=== PATIENT | female | born 1980 | race Caucasian/White ===

== ENCOUNTER 2016-12-17 02:35 | Emergency (ER) | payer OTHER ==
[2016-12-17] MEDS ORDERED: AMOXICILLIN 500 MG CAP As Ordered ONE (04:30)
--- NOTE | 2016-12-17 04:38 | EDDOCDS ---
Nurse's Notes [facility] Name: Alyssa Deal Age: 36 yrs Sex: Female : 1980 Arrival Date: 12/17/2016 Time: 02:35 Bed 9 Private MD: Diagnosis: Acute serous otitis media, right ear Presentation: 12/17 02:47 Presenting complaint: Patient states: URI symptoms since Friday developed right ear cz pain earlier tonight. Adult Sepsis Screening: The patient does not have new or worsening altered mentation. Patient's respiratory rate is less than 22. Systolic blood pressure is greater than 100. Patient has a qSOFA score of 0- Negative Sepsis Screen. Suicide/Homicide risk assessment- the patient denies having any suicidal and/or homicidal ideations and does not present with any other emotional, behavioral or mental health complaints. Status: The patient is a dependent. Transition of care: patient was not received from another setting of care. 02:47 Acuity: LISANDRA Level 5 cz 02:47 Method Of Arrival: Walkin/Carried/Asstd cz Triage Assessment: 02:49 General: Appears in no apparent distress. Pain: Location: right ear Pain currently is 8 cz out of 10 on a pain scale. Pt Declines HIV testing. 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 control - PMHx: none; - PSHx: none; - Social history: Smoking status: Patient states was never smoker of tobacco. No barriers to communication noted, The patient speaks fluent Bengali, Speaks appropriately for age. - Family history: Not pertinent. - : The pt / caregiver states he / she is not on anticoagulants. Home medication list is obtained from the patient. - Exposure Risk Screening:: None identified. Screenin:35 Screening information is obtained from the patient. Fall risk: No risks identified. ko2 Assistance ADL's: requires no assistance with activities of daily living. Abuse/DV Screen: The patient / caregiver reports he/she is: not in a situation that causes fear, pain or injury. Nutritional screening: No deficits noted. Advance Directives: Currently, there is no health care proxy. There is no active DNR order. home support is adequate. Assessment: 03:10 General: Appears uncomfortable, Behavior is appropriate for age, cooperative. Pain: ko2 Location: right ear. Neurological: Level of Consciousness is awake, alert. EENT: Reports pain in right ear. Respiratory: Airway is patent Respiratory effort is even, unlabored. Derm: Skin is normal. 04:36 General: Appears uncomfortable, Behavior is appropriate for age, cooperative. Pain: ko2 Location: right ear Pain currently is 7 out of 10 on a pain scale. Neurological: No deficits noted. Respiratory: Airway is patent Respiratory effort is even, unlabored, Reports cough that is. Derm: Skin is normal. Vital Signs: 02:49 BP 124 / 83; Pulse 69; Resp 16; Temp 98.5(O); Pulse Ox 98% on R/A; Weight 69.4 kg; cz Height 5 ft. 9 in. (175.26 cm); 04:30 BP 132 / 85; Pulse 68; Resp 18; Temp 99.5(TE); Pulse Ox 99% on R/A; Pain 8/10; deepthi 02:49 Body Mass Index 22.59 (69.40 kg, 175.26 cm) Vitals: 02:49 Log In Time: December 17, 2016 at 02:35. cz ED Course: 02:36 Patient visited by Dustin Pedersen Reg. pm4 02:36 Patient moved to Waiting pm4 02:47 Patient moved to Triage 1 cz 02:48 Triage Initiated cz 02:52 Patient moved to Pre RCE cz 03:06 Lyric Sin,RN is Primary Nurse. cz 03:06 Patient moved to 9 cz 03:22 Patient visited by Ton Voss PCA. kb5 04:02 Poncho Gusman DO is Attending Physician. mm11 04:02 Patient visited by Poncho Gusman DO. mm11 04:14 Patient visited by Poncho Gusman DO. mm11 04:15 [facility] is Referral Physician. mm11 04:36 The patient / caregiver is instructed regarding the plan of care and ED course. ko2 04:36 No IV's were initiated during this patient's visit. No procedures done that require ko2 assistance. Administered Medications: 04:31 Drug: Amoxicillin 500 mg [amoxicillin 500 mg capsule (1 caps)] Route: PO; ko2 Order Results: There are currently no results for this order. Outcome: 04:15 Discharge ordered by Provider. mm11 04:37 Discharge Assessment: Patient awake, alert and oriented x 3. No cognitive and/or ko2 functional deficits noted. Patient verbalized understanding of disposition instructions. patient administered narcotics - no. The following High Risk Discharge criteria are identified: None. Discharged to home ambulatory, with parent. Condition: stable. Discharge instructions given to patient, Instructed on discharge instructions, follow up and referral plans. medication usage, Demonstrated understanding of instructions, medications, Pt was receptive of discharge instructions/ teaching. Prescriptions given X 1. No special radiology studies were completed. Property sent home with patient. 04:37 Patient left the ED. ko2 Signatures: Rex Acevedo, RN RN cz Ton Voss, COST AND RISK ANALYSIS MANAGER COST AND RISK ANALYSIS MANAGER kb5 Poncho Gusman, DO SLOAN mm11 Alondra Sagastume, COST AND RISK ANALYSIS MANAGER COST AND RISK ANALYSIS MANAGER deepthi Lyric Sin RN RN ko2 Dustin Pedersen, Reg Reg pm4 MTDD
--- NOTE | 2016-12-17 04:38 | EDDOCDS ---
Physician Documentation [facility] Name: Alyssa Deal Age: 36 yrs Sex: Female : 1980 Arrival Date: 12/17/2016 Time: 02:35 Bed 9 Private MD: Disposition: 12/17/16 04:15 Discharged to Home/Self Care. Impression: Acute serous otitis media, right ear. - Condition is Stable. - Discharge Instructions: Otitis Media, Adult, Otitis Media, Adult, [id number]. - Prescriptions for Amoxicillin 500 mg Oral Capsule - take 1 capsule by ORAL route every 8 hours for 10 days; 30 tablet. - Medication Reconciliation, Local Pharmacy Hours form. - [facility]; When: Call to arrange an appointment; Reason: To establish care. - Problem is an ongoing problem. - Symptoms have improved. Historical: - Allergies: No known drug Allergies; - Home Meds: 1. control - PMHx: none; - PSHx: none; - Social history: Smoking status: Patient states was never smoker of tobacco. No barriers to communication noted, The patient speaks fluent Tunisian, Speaks appropriately for age. - Family history: Not pertinent. - : The pt / caregiver states he / she is not on anticoagulants. Home medication list is obtained from the patient. - Exposure Risk Screening:: None identified. 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 9 in. (175.26 cm); 04:30 BP 132 / 85; Pulse 68; Resp 18; Temp 99.5(TE); Pulse Ox 99% on R/A; Pain 8/10; deepthi 02:49 Body Mass Index 22.59 (69.40 kg, 175.26 cm) cz MDM: 04:14 Amoxicillin 500 mg PO once ordered. mm11 Administered Medications: 04:31 Drug: Amoxicillin 500 mg [amoxicillin 500 mg capsule (1 caps)] Route: PO; ko2 Signatures: Rex Acevedo RN RN cz Maynard, Matthew, DO DO mm11 Lyric Sin RN RN ko2 MTDD
--- NOTE | 2016-12-19 05:38 | EDDOCDS ---
Nurse's Notes [facility] Name: Alyssa Deal Age: 36 yrs Sex: Female : 1980 Arrival Date: 12/17/2016 Time: 02:35 Bed 9 Private MD: Diagnosis: Acute serous otitis media, right ear Presentation: 12/17 02:47 Presenting complaint: Patient states: URI symptoms since Friday developed right ear cz pain earlier tonight. Adult Sepsis Screening: The patient does not have new or worsening altered mentation. Patient's respiratory rate is less than 22. Systolic blood pressure is greater than 100. Patient has a qSOFA score of 0- Negative Sepsis Screen. Suicide/Homicide risk assessment- the patient denies having any suicidal and/or homicidal ideations and does not present with any other emotional, behavioral or mental health complaints. Status: The patient is a dependent. Transition of care: patient was not received from another setting of care. 02:47 Acuity: LISANDRA Level 5 cz 02:47 Method Of Arrival: Walkin/Carried/Asstd cz Triage Assessment: 02:49 General: Appears in no apparent distress. Pain: Location: right ear Pain currently is 8 cz out of 10 on a pain scale. Pt Declines HIV testing. AUDITOR/QUALITY: 02:49 LMP 11/14/2016 cz Historical: - Allergies: No known drug Allergies; - Home Meds: 1. control - PMHx: none; - PSHx: none; - Social history: Smoking status: Patient states was never smoker of tobacco. No barriers to communication noted, The patient speaks fluent Telugu, Speaks appropriately for age. - Family history: Not pertinent. - : The pt / caregiver states he / she is not on anticoagulants. Home medication list is obtained from the patient. - Exposure Risk Screening:: None identified. Screenin:35 Screening information is obtained from the patient. Fall risk: No risks identified. ko2 Assistance ADL's: requires no assistance with activities of daily living. Abuse/DV Screen: The patient / caregiver reports he/she is: not in a situation that causes fear, pain or injury. Nutritional screening: No deficits noted. Advance Directives: Currently, there is no health care proxy. There is no active DNR order. home support is adequate. Assessment: 03:10 General: Appears uncomfortable, Behavior is appropriate for age, cooperative. Pain: ko2 Location: right ear. Neurological: Level of Consciousness is awake, alert. EENT: Reports pain in right ear. Respiratory: Airway is patent Respiratory effort is even, unlabored. Derm: Skin is normal. 04:36 General: Appears uncomfortable, Behavior is appropriate for age, cooperative. Pain: ko2 Location: right ear Pain currently is 7 out of 10 on a pain scale. Neurological: No deficits noted. Respiratory: Airway is patent Respiratory effort is even, unlabored, Reports cough that is. Derm: Skin is normal. Vital Signs: 02:49 BP 124 / 83; Pulse 69; Resp 16; Temp 98.5(O); Pulse Ox 98% on R/A; Weight 69.4 kg; cz Height 5 ft. 9 in. (175.26 cm); 04:30 BP 132 / 85; Pulse 68; Resp 18; Temp 99.5(TE); Pulse Ox 99% on R/A; Pain 8/10; deepthi 02:49 Body Mass Index 22.59 (69.40 kg, 175.26 cm) Vitals: 02:49 Log In Time: December 17, 2016 at 02:35. cz ED Course: 02:36 Patient visited by Dustin Pedersen Reg. pm4 02:36 Patient moved to Waiting pm4 02:47 Patient moved to Triage 1 cz 02:48 Triage Initiated cz 02:52 Patient moved to Pre RCE cz 03:06 Lyric Sin,RN is Primary Nurse. cz 03:06 Patient moved to 9 cz 03:22 Patient visited by Ton Voss PCA. kb5 04:02 Poncho Gusman DO is Attending Physician. mm11 04:02 Patient visited by Poncho Gusman DO. mm11 04:14 Patient visited by Poncho Gusman DO. mm11 04:15 [facility] is Referral Physician. mm11 04:36 The patient / caregiver is instructed regarding the plan of care and ED course. ko2 04:36 No IV's were initiated during this patient's visit. No procedures done that require ko2 assistance. 04:44 [facility] Payment Agreement was scanned into [employer] and attached to record. hs2 04:46 Patient name changed from Alyssa\S\L\S\Say\S\ to Alyssa\S\Sheeba\S\Say. EDGA 12:10 T-Sheet-- Draft Copy was scanned into [employer] and attached to record. gb Administered Medications: 04:31 Drug: Amoxicillin 500 mg [amoxicillin 500 mg capsule (1 caps)] Route: PO; ko2 Order Results: There are currently no results for this order. Outcome: 04:15 Discharge ordered by Provider. mm11 04:37 Discharge Assessment: Patient awake, alert and oriented x 3. No cognitive and/or ko2 functional deficits noted. Patient verbalized understanding of disposition instructions. patient administered narcotics - no. The following High Risk Discharge criteria are identified: None. Discharged to home ambulatory, with parent. Condition: stable. Discharge instructions given to patient, Instructed on discharge instructions, follow up and referral plans. medication usage, Demonstrated understanding of instructions, medications, Pt was receptive of discharge instructions/ teaching. Prescriptions given X 1. No special radiology studies were completed. Property sent home with patient. 04:37 Patient left the ED. ko2 Signatures: [facility] ED[facility] Rex Acevedo, RN RN cz Anu Lyn, Reg Reg gb Ton Voss, TIN RECOVERY WORKER TIN RECOVERY WORKER kb5 Poncho Gusman, DO mm11 Alondra Sagastume, TIN RECOVERY WORKER TIN RECOVERY WORKER Lyric Castaneda RN RN ko2 Renetta Mars, Reg Reg hs2 Dustin Pedersen, Reg Reg pm4 Chart Complete MTDD
--- NOTE | 2016-12-19 05:38 | EDDOCDS ---
Physician Documentation [facility] Name: Alyssa Deal Age: 36 yrs Sex: Female : 1980 Arrival Date: 12/17/2016 Time: 02:35 Bed 9 Private MD: Disposition: 12/17/16 04:15 Discharged to Home/Self Care. Impression: Acute serous otitis media, right ear. - Condition is Stable. - Discharge Instructions: Otitis Media, Adult, Otitis Media, Adult, [id number]. - Prescriptions for Amoxicillin 500 mg Oral Capsule - take 1 capsule by ORAL route every 8 hours for 10 days; 30 tablet. - Medication Reconciliation, Local Pharmacy Hours form. - Follow up: [facility]; When: Call to arrange an appointment; Reason: To establish care. - Problem is an ongoing problem. - Symptoms have improved. Historical: - Allergies: No known drug Allergies; - Home Meds: 1. control - PMHx: none; - PSHx: none; - Social history: Smoking status: Patient states was never smoker of tobacco. No barriers to communication noted, The patient speaks fluent Turkmen, Speaks appropriately for age. - Family history: Not pertinent. - : The pt / caregiver states he / she is not on anticoagulants. Home medication list is obtained from the patient. - Exposure Risk Screening:: None identified. MARKETING AND PROMOTIONS MANAGER: 12/17 02:49 LMP 11/14/2016 cz Vital Signs: 02:49 BP 124 / 83; Pulse 69; Resp 16; Temp 98.5(O); Pulse Ox 98% on R/A; Weight 69.4 kg / 153 cz lbs; Height 5 ft. 9 in. (175.26 cm); 04:30 BP 132 / 85; Pulse 68; Resp 18; Temp 99.5(TE); Pulse Ox 99% on R/A; Pain 8/10; deepthi 02:49 Body Mass Index 22.59 (69.40 kg, 175.26 cm) cz MDM: 04:14 Amoxicillin 500 mg PO once ordered. mm11 04:44 [facility] Payment Agreement was scanned into [employer] and attached to record. hs2 04:50 Financial registration complete. hs2 12:10 T-Sheet-- Draft Copy was scanned into [employer] and attached to record. gb Administered Medications: 04:31 Drug: Amoxicillin 500 mg [amoxicillin 500 mg capsule (1 caps)] Route: PO; ko2 Signatures: Rex Acevedo, [place] RN cz Anu Lyn, Reg Reg gb Poncho Gusman DO DO mm11 Lyric Sin RN RN ko2 Renetta Mars, Reg Reg hs2 The chart was reviewed and I authenticate all verbal orders and agree with the evaluation and treatment provided.Attachments: 04:44 [facility] Payment Agreement hs2 12:10 T-Sheet-- Draft Copy gb Chart Complete MTDD
--- NOTE | 2016-12-19 05:38 | EDDOCDS ---
Physician Documentation [facility] Name: Alyssa Deal Age: 36 yrs Sex: Female : 1980 Arrival Date: 12/17/2016 Time: 02:35 Bed 9 Private MD: Disposition: 12/17/16 04:15 Discharged to Home/Self Care. Impression: Acute serous otitis media, right ear. - Condition is Stable. - Discharge Instructions: Otitis Media, Adult, Otitis Media, Adult, [id number]. - Prescriptions for Amoxicillin 500 mg Oral Capsule - take 1 capsule by ORAL route every 8 hours for 10 days; 30 tablet. - Medication Reconciliation, Local Pharmacy Hours form. - Follow up: [facility]; When: Call to arrange an appointment; Reason: To establish care. - Problem is an ongoing problem. - Symptoms have improved. Historical: - Allergies: No known drug Allergies; - Home Meds: 1. control - PMHx: none; - PSHx: none; - Social history: Smoking status: Patient states was never smoker of tobacco. No barriers to communication noted, The patient speaks fluent Sao Tomean, Speaks appropriately for age. - Family history: Not pertinent. - : The pt / caregiver states he / she is not on anticoagulants. Home medication list is obtained from the patient. - Exposure Risk Screening:: None identified. 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 9 in. (175.26 cm); 04:30 BP 132 / 85; Pulse 68; Resp 18; Temp 99.5(TE); Pulse Ox 99% on R/A; Pain 8/10; deepthi 02:49 Body Mass Index 22.59 (69.40 kg, 175.26 cm) cz MDM: 04:14 Amoxicillin 500 mg PO once ordered. mm11 04:44 [facility] Payment Agreement was scanned into [employer] and attached to record. hs2 04:50 Financial registration complete. hs2 12:10 T-Sheet-- Draft Copy was scanned into [employer] and attached to record. gb Administered Medications: 04:31 Drug: Amoxicillin 500 mg [amoxicillin 500 mg capsule (1 caps)] Route: PO; ko2 Signatures: Rex Acevedo, [place] RN cz Anu Lyn, Reg Reg gb Poncho Gusman DO DO mm11 Lyric Sin RN RN ko2 Renetta Mars, Reg Reg hs2 The chart was reviewed and I authenticate all verbal orders and agree with the evaluation and treatment provided.Attachments: 04:44 [facility] Payment Agreement hs2 12:10 T-Sheet-- Draft Copy gb Chart Complete MTDD
== END 2016-12-17 04:37 | disposition home or self-care (01) ==
LOC: M ED 02:35
DX: H65.01 Acute serous otitis media, right ear (principal); Z79.3 Long term (current) use of hormonal contraceptives

== ENCOUNTER → 2019-01-06 | Outpatient (REF) | payer BC ==
[2019-01-09 00:06] LABS: HPV HYBRID CAPTURE II Negative (Negative)
== END ==
LOC: M SFHCWAGY 14:36
PROVIDERS: ATTEND Nurse Practitioner Family
DX: Z12.4 Encounter for screening for malignant neoplasm of cervix (principal)
CPT/HCPCS: 87624; G0123

== ENCOUNTER → 2019-05-27 | Outpatient (REF) | payer BC ==
[2019-05-27 20:35] LABS: CHLAMYDIA DNA AMPLIFICATION NEGATIVE (NEGATIVE); GC DNA AMPLIFICATION NEGATIVE (NEGATIVE)
== END ==
LOC: M SFHCWAGY 16:51
PROVIDERS: ATTEND Nurse Practitioner Family
DX: Z11.3 Encounter for screening for infections with a predominantly sexual mode of transmission (principal)

== ENCOUNTER → 2020-11-03 | Outpatient (CLI) | payer BC ==
[2020-11-04 08:09] LABS: MUMPS VIRUS IgG ANTIBODY 45.8 AU/mL (Immune >10.9); RUBEOLA IgG ANTIBODY 65.5 AU/mL (Immune >16.4)
== END ==
LOC: M WUC 10:11
PROVIDERS: ATTEND Student in an Organized Health Care Education/Training Program
DX: Z01.84 Encounter for antibody response examination (principal)